=== PATIENT | male | born 1970 | race African-American/Black ===

== ENCOUNTER 2017-07-26 06:39 | Emergency (ER) | payer OTHER ==
[~2017-07-26] VITALS: Ht 190.5 cm; Wt 99.8 kg
--- NOTE | 2017-07-26 06:50 | NUR ---
ER AT BEDSIDE FOR EVAL
--- NOTE | 2017-07-26 06:55 | NUR ---
PT RECEIVED FROM STREETS (HOMELESS) C/O FLU LIKE SYMPTOMS X1 WEEK WITH EXACERBATED CHRONIC LEFT LEG PAIN FROM INJURY DURING CHILDHOOD. NO SOB NOTED. PAIN IS 6/10 "WHOLE LEG BUT RIGHT NOW MY FOOT". A/O X4 STATES HE USES MARIJUANA AND ALCOHOL AT TIMES. WILL CONTINUE TO MONITOR
[2017-07-26] MEDS ORDERED: ACETAMINOPHEN ES 500 MG TABLET ONE (07:02)
--- NOTE | 2017-07-26 07:07 | NUR ---
VERBAL ORDER FOR TYLENOL 1G PO X1 NOW
--- NOTE | 2017-07-26 07:12 | NUR ---
LAB AT BEDSIDE FOR BLOOD DRAW
--- NOTE | 2017-07-26 07:12 | NUR ---
REPORT GIVEN TO TEMITOPE
--- NOTE | 2017-07-26 07:20 | NUR ---
Mayra banegas in ED - 07/26/17 at 0728 by TONY REPORT GIVEN TO KENDALL LINN FOR PAUL.
[2017-07-26 07:28] LABS: APPEARANCE,URINE CLEAR (CLEAR); BILIRUBIN,URINE NEGATIVE (NEGATIVE); BLOOD, URINE NEGATIVE Ery/uL (NEGATIVE); COLOR,URINE YELLOW (YELLOW); KETONES,URINE NEGATIVE (NEGATIVE); LEUKOCYTE ESTERASE ,URINE NEGATIVE (NEGATIVE); NITRITE, URINE NEGATIVE (NEGATIVE); PROTEIN,URINE NEGATIVE (NEGATIVE); UGLUCOSE NEGATIVE (NEGATIVE)
[2017-07-26] MEDS ORDERED: ACETAMINOPHEN ES 500 MG TABLET PO ONE (07:30)
[2017-07-26 07:32] LABS: BASOPHILS % (AUTO) 0.5 % (0.0-2.0); EOSINOPHILS # (AUTO) 0.1 /CMM (0.0-0.7); HEMATOCRIT 39 % (39-51); HEMOGLOBIN 13.3 g/dL (13.5-17.5); LYMPHOCYTES # (AUTO) 0.8 /CMM (0.8-4.8); LYMPHOCYTES % (AUTO) 16.7 % (20.0-44.0); MEAN CORPUSCULAR HEMOGLOBIN 31 PG (26.0-33.0); MEAN CORPUSCULAR HGB CONC 34 g/dl (31.0-36.0); MEAN CORPUSCULAR VOLUME 90 fL (80-96); MONOCYTES # (AUTO) 0.4 /CMM (0.1-1.30); MONOCYTES % (AUTO) 7.5 % (2.0-12.0); NEUTROPHILS # (AUTO) 3.6 /CMM (1.8-8.9); NEUTROPHILS % (AUTO) 73.3 % (43.0-81.0); PLATELET COUNT (AUTO) 266 /CMM (150-450); RDW COEFFICIENT OF VARIATION 13.5 (11.5-15.0); RED BLOOD CELL COUNT(AUTO) 4.29 MIL/uL (4.5-6.0); WHITE BLOOD COUNT (AUTO) 4.9 K/uL (4.3-11.0)
--- NOTE | 2017-07-26 07:32 | NUR ---
CALLED RADIOLOGY RE CHEST XRAY
[2017-07-26 07:40] LABS: ALBUMIN 3.7 g/dL (3.4-5.0); BILIRUBIN,DIRECT 0.3 mg/dL (0.0-0.2); BILIRUBIN,TOTAL 1.1 mg/dL (0.2-1.0); CALCIUM, SERUM 8.8 mg/dL (8.5-10.1); CREATININE 1.1 mg/dL (0.6-1.3); POTASSIUM 3.3 mmol/L (3.5-5.1); TOTAL PROTEIN, SERUM 7.5 g/dL (6.4-8.2)
[2017-07-26 07:52] LABS: BACTERIA,URINE Rare /HPF (None Seen); RBC,URINE NONE SEEN /HPF (0-2); SQUAMOUS EPITHELIAL CELL,UR Few /HPF (None Seen)
[2017-07-26] MEDS ORDERED: ASPIRIN 325 MG TABLET PO ONE (08:30)
[2017-07-26] MEDS ORDERED: NITROGLYCERIN 0.4 MG/TAB BOTTLE SL ONE (08:30)
[2017-07-26 08:39] LABS: MONOTEST NEGATIVE (NEGATIVE)
--- NOTE | 2017-07-26 09:15 | NUR ---
Patient discharged to home in stable condition. Written and verbal after care instructions given. Patient verbalizes understanding of instruction.
[2017-07-26 09:44] VITALS: BP 122/61
== END 2017-07-26 09:45 | disposition home or self-care (01) ==
LOC: ER 06:43
DX: R53.83 Other fatigue (principal); F12.10 Cannabis abuse, uncomplicated
CPT/HCPCS: 36415; 71010; 80048; 80076; 81001; 85025; 86308; 87086; 93971; 99285; A4606; Z7610; 81000-TC

== ENCOUNTER 2017-07-26 21:28 | Emergency (ER) | payer OTHER ==
[~2017-07-26] VITALS: Ht 190.5 cm; Wt 95.3 kg
--- NOTE | 2017-07-26 21:30 | NUR ---
BBRA C/O LEFT LEG PAIN THAT STARTED WHILE WALKING, NAD NOTED, VSS, RESP EVEN AND UNLABORED. WAITING FOR MD VALENZUELA.
[2017-07-26 23:40] LABS: BASOPHILS % (AUTO) 0.6 % (0.0-2.0); EOSINOPHILS # (AUTO) 0.2 /CMM (0.0-0.7); EOSINOPHILS % (AUTO) 4.9 % (0.0-6.0); HEMATOCRIT 39 % (39-51); HEMOGLOBIN 13.4 g/dL (13.5-17.5); LYMPHOCYTES # (AUTO) 1.3 /CMM (0.8-4.8); MEAN CORPUSCULAR HEMOGLOBIN 31 PG (26.0-33.0); MEAN CORPUSCULAR HGB CONC 34 g/dl (31.0-36.0); MEAN CORPUSCULAR VOLUME 91 fL (80-96); MONOCYTES # (AUTO) 0.4 /CMM (0.1-1.30); MONOCYTES % (AUTO) 8.8 % (2.0-12.0); NEUTROPHILS # (AUTO) 2.8 /CMM (1.8-8.9); NEUTROPHILS % (AUTO) 57.7 % (43.0-81.0); PLATELET COUNT (AUTO) 250 /CMM (150-450); RDW COEFFICIENT OF VARIATION 13.5 (11.5-15.0); RED BLOOD CELL COUNT(AUTO) 4.34 MIL/uL (4.5-6.0); WHITE BLOOD COUNT (AUTO) 4.8 K/uL (4.3-11.0)
[2017-07-26 23:45] LABS: CALCIUM, SERUM 8.6 mg/dL (8.5-10.1); CREATININE 1.1 mg/dL (0.6-1.3); POTASSIUM 3.7 mmol/L (3.5-5.1)
[2017-07-26 23:54] LABS: ALBUMIN 3.6 g/dL (3.4-5.0); BILIRUBIN,DIRECT 0.1 mg/dL (0.0-0.2); BILIRUBIN,TOTAL 0.6 mg/dL (0.2-1.0); TOTAL PROTEIN, SERUM 7.2 g/dL (6.4-8.2)
[2017-07-26 23:57] LABS: INR 1.03 (0.87-1.13); PROTHROMBIN TIME 10.7 SECS (9.5-12.7)
--- NOTE | 2017-07-27 | NUR ---
SNACKS GIVEN AT BS
--- NOTE | 2017-07-27 00:03 | NUR ---
REPORT GIVEN TO PITO CHARGE NURSE.
[2017-07-27 00:33] LABS: APPEARANCE,URINE CLEAR (CLEAR); BILIRUBIN,URINE NEGATIVE (NEGATIVE); BLOOD, URINE NEGATIVE Ery/uL (NEGATIVE); COLOR,URINE YELLOW (YELLOW); KETONES,URINE TRACE (NEGATIVE); LEUKOCYTE ESTERASE ,URINE NEGATIVE (NEGATIVE); NITRITE, URINE NEGATIVE (NEGATIVE); PROTEIN,URINE NEGATIVE (NEGATIVE); UGLUCOSE NEGATIVE (NEGATIVE)
[2017-07-27 00:36] VITALS: BP 122/62
--- NOTE | 2017-07-27 00:36 | NUR ---
Patient discharged to home in stable condition. Written and verbal after care instructions given. Patient verbalizes understanding of instruction.IV removed. Catheter intact and site benign. Pressure and 4x4 applied to site. No bleeding noted. Prescription given.
[2017-07-27 00:48] LABS: BACTERIA,URINE None seen /HPF (None Seen); RBC,URINE NONE SEEN /HPF (0-2); SQUAMOUS EPITHELIAL CELL,UR Rare /HPF (None Seen); WBC,URINE 0-2 /HPF (0-3)
== END 2017-07-27 00:38 | disposition home or self-care (01) ==
LOC: ER 21:29
DX: R60.0 Localized edema (principal); R05 Cough; F12.10 Cannabis abuse, uncomplicated
CPT/HCPCS: 36415; 73590; 80048; 80076; 81001; 85025; 85730; 99285; A4606; Z7610; 81000-TC